=== PATIENT | female | born 2000 | race Caucasian/White ===

== ENCOUNTER 2021-07-30 20:14 | Emergency (ER) | payer OTHER ==
[~2021-07-30] VITALS: Ht 157.5 cm; Wt 65.8 kg
--- NOTE | 2021-07-30 20:20 | NUR ---
20/F BIB SELF C/O LOWER BACK PAIN X 2 MONTHS. PATIENT STATED THAT IT STARTED AFTER I SHE FINISHED HIKING. SHE STATED THAT SHE ALMOST FELL SO SHE THINKS SHE PULLED SOMETHING. PAIN IS 5/10 AND SHARP, HURTS WITH MOVEMENT. AAOX4, AMBULATORY. RR EVEN AND UNLABORED. PLACED IN GOWN, BE LOW AND LOCKED. SIDE RAIL UP FOR SAFETY. ALL NEEDS MET. NKA PMHX DENIES. MEDS DENIES
[2021-07-30 20:27] VITALS: BP 106/69
--- NOTE | 2021-07-30 20:35 | NUR ---
PT TAKEN TO ER BED 07
--- NOTE | 2021-07-30 20:39 | NUR ---
PATIENT AMBULATED TO THE AND BACK TO BED 7
--- NOTE | 2021-07-30 20:40 | NUR ---
MD WEEMS AT BEDSIDE
[2021-07-30] MEDS ORDERED: LID5T TP (21:03)
[2021-07-30] MEDS ORDERED: IBUP-2213 PO (21:03)
[2021-07-30] MEDS ORDERED: KETOROLAC 30 MG/ML VIAL IM ONE (21:05)
--- NOTE | 2021-07-30 21:30 | NUR ---
PAIN DECREASED 0/10. PATIENT CALM AND COOPERATIVE. SITTING IN BED QUIETLY. ALL NEEDS MET AT THIS TIME.
[2021-07-30 22:24] VITALS: BP 134/80
--- NOTE | 2021-07-30 22:24 | NUR ---
Patient discharged with v/s stable. Written and verbal after care instructions given on Lower back pain and explained. Patient alert, oriented and verbalized understanding of instructions. Ambulatory with steady gait. All questions addressed prior to discharge. ID band removed. Patient advised to follow up with PMD. Rx of Ibuprofen and Lidocaine Hyd given.
--- NOTE | 2021-07-30 22:26 | NUR ---
Chart checked and completed.
== END 2021-07-30 22:24 | disposition home or self-care (01) ==
LOC: MED 20:14
DX: S39.012A Strain of muscle, fascia and tendon of lower back, initial encounter (principal); Z79.899 Other long term (current) drug therapy; X58.XXXA Exposure to other specified factors, initial encounter; Y93.89 Activity, other specified; Y92.89 Other specified places as the place of occurrence of the external cause; Y99.8 Other external cause status
CPT/HCPCS: 81025; 96372; 99283; J1885